=== PATIENT | male | born 1960 | race Two or more races ===

== ENCOUNTER → 2017-09-01 | Outpatient (REF) | payer OTHER ==
[2017-09-01 12:01] LABS: BASO % 0.7 % (0.0-1.0); EOS # 0.2 10^3/uL (0.0-0.50); EOS % 2.8 % (0.0-3.0); IMMATURE GRANULOCYTE % 0.4 % (0-0); LYMPH # 1.3 10^3/uL (1.5-4.5); LYMPH % 23.1 % (24.0-44.0); MEAN CORPUSCULAR HEMOGLOBIN 30.9 pg (27.0-33.0); MEAN CORPUSCULAR HGB CONC 33.6 g/dl (32.0-36.5); MEAN CORPUSCULAR VOLUME 92.2 fl (80.0-96.0); MONO # 0.4 10^3/uL (0.0-0.8); MONO % 7.3 % (0.0-5.0); NEUTROPHILS # 3.6 10^3/uL (1.8-7.7); NEUTROPHILS % 65.7 % (36.0-66.0); PLATELET COUNT, AUTOMATED 297 10^3/uL (150-450); RED CELL DISTRIBUTION WIDTH 12.8 % (11.5-14.5); WHITE BLOOD COUNT 5.5 10^3/uL (4.0-10.0)
[2017-09-01 12:49] LABS: ALBUMIN 4.4 GM/DL (3.2-5.2); ALBUMIN/GLOBULIN RATIO 1.52 (1.00-1.93); ALKALINE PHOSPHATASE 49 U/L (45-117); ALT/SGPT 33 U/L (12-78); ANION GAP 7 MEQ/L (8-16); AST/SGOT 19 U/L (7-37); BILIRUBIN,TOTAL 0.4 MG/DL (0.2-1.0); BLOOD UREA NITROGEN 22 MG/DL (7-18); CALCIUM LEVEL 9.4 MG/DL (8.5-10.1); CARBON DIOXIDE LEVEL 28 MEQ/L (21-32); CHLORIDE LEVEL 105 MEQ/L (98-107); CHOLESTEROL LEVEL 175 MG/DL (<200); CREATININE FOR GFR 0.96 MG/DL (0.70-1.30); FREE T4 0.82 NG/DL (0.76-1.46); GLOMERULAR FILTRATION RATE > 60.0 (>56); GLUCOSE, FASTING 93 MG/DL (70-105); SODIUM LEVEL 140 MEQ/L (136-145); TOTAL PROTEIN 7.3 GM/DL (6.4-8.2); TRIGLYCERIDES LEVEL 72 MG/DL (<150)
[2017-09-01 12:59] LABS: POTASSIUM SERUM 5.3 MEQ/L (3.5-5.1)
== END ==
LOC: M SFHCCLAY 08:50
PROVIDERS: ATTEND Nurse Practitioner Family
DX: R73.01 Impaired fasting glucose (principal); B19.10 Unspecified viral hepatitis B without hepatic coma; I48.91 Unspecified atrial fibrillation

== ENCOUNTER 2017-12-05 07:17 | Day surgery (SDC) | payer OTHER ==
[2017-12-05] MEDS: NS 1,000 ML IV (07:45)
[2017-12-05] MEDS ORDERED: PROPOFOL 200 MG/20 ML VIAL As Ordered ×2 (07:57→08:40)
[2017-12-05] MEDS ORDERED: LIDOCAINE 2% INJ 100 MG/5 ML SDV (FOR ANES.) As Ordered (07:59)
== END 2017-12-05 09:25 | disposition home or self-care (01) ==
LOC: M OPP 07:17
DX: Z12.11 Encounter for screening for malignant neoplasm of colon (principal); Z86.010 Personal history of colon polyps; K57.30 Diverticulosis of large intestine without perforation or abscess without bleeding; I48.91 Unspecified atrial fibrillation; K57.32 Diverticulitis of large intestine without perforation or abscess without bleeding; Z86.19 Personal history of other infectious and parasitic diseases; M51.9 Unspecified thoracic, thoracolumbar and lumbosacral intervertebral disc disorder; W57.XXXA Bitten or stung by nonvenomous insect and other nonvenomous arthropods, initial encounter; K21.9 Gastro-esophageal reflux disease without esophagitis; F17.290 Nicotine dependence, other tobacco product, uncomplicated; Z79.82 Long term (current) use of aspirin; Z79.899 Other long term (current) drug therapy
CPT/HCPCS: G0105

== ENCOUNTER → 2018-04-20 | Outpatient (REF) | payer OTHER ==
[2018-04-20 11:39] LABS: BASO % 0.4 % (0.0-1.0); EOS # 0.1 10^3/uL (0.0-0.50); HEMATOCRIT 45.9 % (42.0-52.0); HEMOGLOBIN 15.5 g/dl (13.5-17.5); IMMATURE GRANULOCYTE % 0.2 % (0-3.0); LYMPH # 1.2 10^3/uL (1.5-4.5); LYMPH % 21.9 % (24.0-44.0); MEAN CORPUSCULAR HEMOGLOBIN 31.3 pg (27.0-33.0); MEAN CORPUSCULAR HGB CONC 33.8 g/dl (32.0-36.5); MEAN CORPUSCULAR VOLUME 92.5 fl (80.0-96.0); MONO # 0.3 10^3/uL (0.0-0.8); MONO % 6.3 % (0.0-5.0); NEUTROPHILS # 3.7 10^3/uL (1.8-7.7); NEUTROPHILS % 69.2 % (36.0-66.0); PLATELET COUNT, AUTOMATED 295 10^3/uL (150-450); RED BLOOD COUNT 4.96 10^6/uL (4.30-6.10); RED CELL DISTRIBUTION WIDTH 13.1 % (11.5-14.5); WHITE BLOOD COUNT 5.4 10^3/uL (4.0-10.0)
[2018-04-20 12:05] LABS: ALBUMIN 4.1 GM/DL (3.2-5.2); ALBUMIN/GLOBULIN RATIO 1.24 (1.00-1.93); ALKALINE PHOSPHATASE 58 U/L (45-117); ALT/SGPT 31 U/L (12-78); ANION GAP 4 MEQ/L (8-16); AST/SGOT 18 U/L (7-37); BILIRUBIN,TOTAL 0.4 MG/DL (0.2-1.0); BLOOD UREA NITROGEN 18 MG/DL (7-18); CALCIUM LEVEL 9.2 MG/DL (8.5-10.1); CARBON DIOXIDE LEVEL 32 MEQ/L (21-32); CHLORIDE LEVEL 107 MEQ/L (98-107); CHOLESTEROL LEVEL 180 MG/DL (<200); CHOLESTEROL RISK RATIO 2.903 (<5); CREATININE FOR GFR 1.05 MG/DL (0.70-1.30); FREE T4 0.79 NG/DL (0.76-1.46); GLOMERULAR FILTRATION RATE > 60.0 (>56); GLUCOSE, FASTING 111 MG/DL (70-100); HDL CHOLESTEROL 62 MG/DL (>40); LDL CHOLESTEROL 109.4 MG/DL (<100); NON-HDL-C 118 MG/DL; POTASSIUM SERUM 5.1 MEQ/L (3.5-5.1); SODIUM LEVEL 143 MEQ/L (136-145); TOTAL PROTEIN 7.4 GM/DL (6.4-8.2); TRIGLYCERIDES LEVEL 43 MG/DL (<150)
[2018-04-20 12:28] LABS: ESTIMATED AVERAGE GLUCOSE 117 MG/DL (60-110); HEMOGLOBIN A1c 5.7 %
== END ==
LOC: M SFHCCLAY 08:32
DX: I48.91 Unspecified atrial fibrillation (principal); B19.10 Unspecified viral hepatitis B without hepatic coma; R73.01 Impaired fasting glucose
CPT/HCPCS: 84443

== ENCOUNTER → 2019-04-17 | Outpatient (REF) | payer OTHER ==
[~2019-04-17] MED LIST: ALEV220T26 PO; ASPI-255 PO; COQ-400C PO; D-3-50003 PO; DOXY100T PO; GLUC1CAP10 PO; MAGN400C2 PO; SALM10002 PO; TYLE500T78 PO; VITA10006 PO; [UNRECOGNIZED DRUG - CODE] PO
[2019-04-17 12:22] LABS: BASO % 0.4 % (0.0-1.0); EOS # 0.2 10^3/uL (0.0-0.50); EOS % 3.1 % (0.0-3.0); HEMATOCRIT 45.6 % (42.0-52.0); HEMOGLOBIN 15.4 g/dl (13.5-17.5); LYMPH # 1.3 10^3/uL (1.5-4.5); LYMPH % 25.7 % (24.0-44.0); MEAN CORPUSCULAR HEMOGLOBIN 31.8 pg (27.0-33.0); MEAN CORPUSCULAR HGB CONC 33.8 g/dl (32.0-36.5); MONO # 0.4 10^3/uL (0.0-0.8); MONO % 7.5 % (0.0-5.0); NEUTROPHILS # 3.2 10^3/uL (1.8-7.7); NEUTROPHILS % 63.1 % (36.0-66.0); PLATELET COUNT, AUTOMATED 266 10^3/uL (150-450); RED BLOOD COUNT 4.85 10^6/uL (4.30-6.10); WHITE BLOOD COUNT 5.1 10^3/uL (4.0-10.0)
[2019-04-17 12:42] LABS: HEMOGLOBIN A1c 5.6 %
[2019-04-17 13:04] LABS: ALBUMIN 3.9 GM/DL (3.2-5.2); ALT/SGPT 28 U/L (12-78); BILIRUBIN,TOTAL 0.5 MG/DL (0.2-1.0); BLOOD UREA NITROGEN 16 MG/DL (7-18); CALCIUM LEVEL 9.2 MG/DL (8.5-10.1); CARBON DIOXIDE LEVEL 29 MEQ/L (21-32); CHLORIDE LEVEL 108 MEQ/L (98-107); CHOLESTEROL LEVEL 179 MG/DL (<200); CHOLESTEROL RISK RATIO 2.934 (<5); CREATININE FOR GFR 1.09 MG/DL (0.70-1.30); FREE T4 0.83 NG/DL (0.76-1.46); GLOMERULAR FILTRATION RATE > 60.0 (>56); GLUCOSE, FASTING 111 MG/DL (70-100); HDL CHOLESTEROL 61 MG/DL (>40); LDL CHOLESTEROL 101 MG/DL (<100); NON-HDL-C 118 MG/DL; POTASSIUM SERUM 4.7 MEQ/L (3.5-5.1); SODIUM LEVEL 142 MEQ/L (136-145); TOTAL PROTEIN 6.8 GM/DL (6.4-8.2); TRIGLYCERIDES LEVEL 83 MG/DL (<150)
== END ==
LOC: M SFHCCLAY 08:30
PROVIDERS: ATTEND Nurse Practitioner Family
DX: R73.01 Impaired fasting glucose (principal); I48.91 Unspecified atrial fibrillation; B19.10 Unspecified viral hepatitis B without hepatic coma; I10 Essential (primary) hypertension; Z12.5 Encounter for screening for malignant neoplasm of prostate
CPT/HCPCS: 80053; 80061; 83036; 84439; 84443; 85025; G0103

== ENCOUNTER → 2019-11-19 | Outpatient (CLI) | payer OTHER ==
[~2019-11-19] MED LIST changes: +APAP500T10 PO; +VITA500079 PO; +[UNRECOGNIZED DRUG - CODE] PO
--- NOTE | 2019-11-19 17:15 | REP ---
RIGHT ELBOW, FOUR VIEWS: Four views of the right elbow performed. No acute fracture or dislocation is seen. A band of calcification is seen in distal triceps tendon or in the adjacent olecranon bursa. This measures 1.7 cm in length and approximately 3 mm in thickness. There is mild to moderate spurring of the olecranon, with a spur identified having a length of approximately 5 mm. There is soft tissue swelling adjacent to the olecranon in the region of the bandlike calcifications. IMPRESSION: Thick linear calcification with soft tissue swelling adjacent to the olecranon. This could represent olecranon bursitis or possibly calcific tendinitis of the triceps. There is olecranon spurring. Electronically Signed by Mau Callahan MD 11/20/2019 08:17 P
== END ==
LOC: M CLY 14:17
PROVIDERS: ATTEND Nurse Practitioner Family
DX: M25.521 Pain in right elbow (principal); M77.9 Enthesopathy, unspecified; M79.89 Other specified soft tissue disorders
CPT/HCPCS: 73080; G0463

== ENCOUNTER 2019-12-04 12:48 | Day surgery (SDC) | payer OTHER ==
[~2019-12-04] VITALS: Ht 185.4 cm; Wt 97.1 kg
[2019-12-04] MEDS: MIDAZOLAM INJ 2 MG/2 ML VIAL (J2250) IV SCH ×2 (12:14→12:16)
[~2019-12-04 12:48] MED LIST changes: +LR 1,000 ML IV ONE; +ceFAZolin SOD 2 GM in IV 1 EA IV ONE
[2019-12-04] MEDS ORDERED: ROPIvacaine 0.5% 30 ML INJECTION (J2795 PER 1MG) ONE (12:49)
[2019-12-04] MEDS ORDERED: dexameTHASONE 10 MG/1 ML VIAL PRES.FREE (J1100) ONE (12:49)
[2019-12-04] MEDS ORDERED: MIDAZOLAM INJ 2 MG/2 ML VIAL (J2250) As Ordered ONE ×2 (13:17→13:54)
[2019-12-04] MEDS ORDERED: fentaNYL 100 MCG/2 ML INJECTION (J3010) As Ordered ONE ×3 (13:17→15:20)
[2019-12-04] MEDS ORDERED: propofoL 200 MG/20 ML VIAL As Ordered ONE (13:17)
[2019-12-04] MEDS ORDERED: LIDOCAINE 2% INJ 100 MG/5 ML SDV (FOR ANES.) As Ordered ONE (13:17)
[2019-12-04] MEDS ORDERED: ROCURONIUM BROMIDE 50 MG/5 ML VIAL As Ordered ONE (13:28)
--- NOTE | 2019-12-04 14:14 | ECGEPIP ---
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
[2019-12-04] MEDS ORDERED: BUPIVACAINE/EPIN 0.25% 30 ML VIAL As Ordered ONE (14:19)
[2019-12-04] MEDS ORDERED: fentaNYL 100 MCG/2 ML INJECTION (J3010) IV ONE (14:45)
[2019-12-04] MEDS ORDERED: ACETAMINOPHEN 1000MG 100ML IV BTL (OFIRMEV) (J0131 PER 10MG) As Ordered ONE (15:16)
[2019-12-04] MEDS ORDERED: ONDANSETRON 4MG/2ML VIAL (J2405) As Ordered ONE (15:20)
[2019-12-04] MEDS ORDERED: dexameTHASONE 4 MG/ML 1ML VIAL (J1100) As Ordered ONE (15:20)
[2019-12-04] MEDS ORDERED: SUGAMMADEX SODIUM 500 MG/5 ML VIAL (BRIDION) As Ordered ONE (15:27)
[2019-12-04] MEDS ORDERED: GLYCOPYRROLATE INJ 0.2 MG/ML 2 ML VIAL As Ordered ONE (15:48)
[2019-12-04] MEDS ORDERED: oxyCODONE 5MG TAB As Ordered ONE (16:48)
[2019-12-04] MEDS: fentaNYL 100 MCG/2 ML INJECTION (J3010) IV PRN ×8 (16:50→17:30)
[2019-12-04] MEDS: oxyCODONE 5MG TAB PO PRN ×2 (16:50→17:20)
[2019-12-04] MEDS ORDERED: LR 1,000 ML IV SCH ×2 (17:00)
[2019-12-04] MEDS ORDERED: METOCLOPRAMIDE INJ 10MG/2ML VIAL (J2765) IV PRN (17:00)
[2019-12-04] MEDS ORDERED: ACETAMINOPHEN TAB 650MG DOSE (2X325MG) PO PRN (17:00)
[2019-12-04] MEDS ORDERED: PERCOCET 5MG/325MG TAB PO PRN (17:00)
[2019-12-04] MEDS ORDERED: MORPHINE 2 MG/ML 1ML VIAL (J2270) IV PRN (17:00)
[2019-12-04] MEDS ORDERED: ONDANSETRON 4MG/2ML VIAL (J2405) IV PRN ×2 (17:00)
--- NOTE | 2019-12-04 17:09 | RO ---
DATE OF PROCEDURE: 12/04/2019 PREOPERATIVE DIAGNOSIS: Right triceps tendon rupture. POSTOPERATIVE DIAGNOSIS: Right triceps tendon rupture. PLANNED PROCEDURE: Right triceps tendon repair. PROCEDURE PERFORMED: Right triceps tendon repair. SURGEON: Wilver Reid MD [employer] PROFESSOR: JUANITA Hearn BRANCH SERVICE ASSOCIATE: Dr. Ritchie. TYPE OF ANESTHETIC: General anesthetic plus block. 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 He sustained a triceps tendon rupture clinically as well as on MRI. We talked about the pros and cons, the risks and benefits of nonsurgical management versus repair. He wished to go ahead with surgery. I reiterated the risks in preoperative holding and marked the right upper extremity, and the patient had a block prior to proceeding to surgery. DESCRIPTION OF PROCEDURE: Patient was brought to the operating theater. He was administered general anesthetic. Two grams of IV Ancef was administered. He was placed right lateral decubitus with the aid of a beanbag positioner. Axillary roll was used as well as all bony prominences padded and sequential compression devices (SCDs) used. Limb was prepped and draped in the usual sterile fashion using a Western elbow positioner. Prep solution drying time over 3 minutes. Preoperative time-out was performed to confirm the site, the patient and surgery. We applied a sterile 18-inch tourniquet to the upper extremity. I bent the elbow with the Western elbow positioner at 90 degrees. I made a standard posterior working incision centered over the posterior aspect of the right elbow. I curved this around laterally. I carried dissection down through skin and subcutaneous tissue to meticulous hemostasis. Identified the triceps tendon rupture where there were a few fibers remaining intact. It was degenerative tendon. There was an area of calcification within the midsubstance of the tendon. Olecranon tip was freshened up to a bleeding surface of bone to create a bleeding bed for tendon healing. I then used a running Krackow locking stitch using #2 FiberWire suture on both sides of the tendon as well as incorporating the deep layer to create four suture tails. Then inserted a FiberLink Arthrex suture as well just proximal to the distal most sutures to have a loop coming out proximally. I then used a 2.5 mm drill to drill two bone tunnels. I placed the bone tunnels at the more proximal extent of the tendon insertion footprint as well as inserting the sutures on the undersurface to correspond to that place in the footprint. I drilled two bone tunnels. I passed three sutures from each side through each respective bone tunnel, including the FiberLink suture. I used one tail from each side to pass back up through the FiberLink and then pulled it through the opposite bone tunnel to create a SpeedBridge type repair construct. All the sutures were tensioned down with the elbow in full extension. I then selected a site for my of 4.75 Arthrex SwiveLock PEEK anchor. I drilled and tapped, as well as going in multiple times back and forth with a tap and drill and a punch to create appropriate depth of tunnel as the bone was quite hard in the proximal ulna. I then passed the sutures from each side in a crisscross fashion through the suture anchor eyelet, and then appropriately tensioned that down using a mallet. Tendon was fixed in appropriate amount of tension and full extension, and the anchor secured, screwed down into place. Suture anchor educational program director was then removed, and the sutures cut short. Tendon was taken through range of motion, at least 90 degrees; it was stable and solid, a good repair was achieved. The subcutaneous tissue was then irrigated using normal saline. Subcutaneous tissue was closed with #2-0 Vicryl sutures followed by running #3-0 Monocryl. Steri-Strips were applied after the wound was cleaned with a wet-and-dry dressing. 4 x 8 gauze as well as sterile cast padding was used to fashion above elbow three-sided plaster of Katie splint with the elbow in about 20 degrees of flexion. Tourniquet was taken down prior to the end of the case and hemostasis was achieved. The patient was transferred off the operating table, woken up from general anesthetic, and taken toe postanesthetic care unit in stable condition. All sponge, needle, and instrument counts were correct. ESTIMATED BLOOD LOSS: 20 mL. PLAN: The patient is to be discharged home according to day surgery criteria. Prescription has been sent to his pharmacy of choice. He will followup in the office in 2 weeks time.
[2019-12-04 19:25] VITALS: BP 137/73
== END 2019-12-04 19:25 | disposition home or self-care (01) ==
LOC: M SDC 12:48
PROVIDERS: ATTEND Orthopaedic Surgery Sports Medicine
DX: S46.311A Strain of muscle, fascia and tendon of triceps, right arm, initial encounter (principal); X50.0XXA Overexertion from strenuous movement or load, initial encounter; Y92.89 Other specified places as the place of occurrence of the external cause; Y93.B3 Activity, free weights; Z86.19 Personal history of other infectious and parasitic diseases; M51.9 Unspecified thoracic, thoracolumbar and lumbosacral intervertebral disc disorder; F43.10 Post-traumatic stress disorder, unspecified; Z86.79 Personal history of other diseases of the circulatory system; Z87.19 Personal history of other diseases of the digestive system; Z72.0 Tobacco use; Z79.899 Other long term (current) drug therapy; Z79.82 Long term (current) use of aspirin
CPT/HCPCS: 24342; 93005; C1713; J0131; J0690; J1100; J2250; J2405; J2795; J3010

== ENCOUNTER → 2020-08-26 | Outpatient (REF) | payer OTHER ==
[~2020-08-26] MED LIST changes: -LR 1,000 ML IV ONE; +VITA100065 PO; -[UNRECOGNIZED DRUG - CODE] PO; -ceFAZolin SOD 2 GM in IV 1 EA IV ONE
[2020-08-26 11:51] LABS: BASO % 0.6 % (0.0-1.0); EOS # 0.2 10^3/uL (0.0-0.5); EOS % 3.9 % (0.0-3.0); HEMATOCRIT 47.3 % (42.0-52.0); HEMOGLOBIN 15.1 g/dl (13.5-17.5); LYMPH # 1.3 10^3/uL (1.5-5.0); LYMPH % 24.9 % (24.0-44.0); MEAN CORPUSCULAR HEMOGLOBIN 29.7 pg (27.0-33.0); MEAN CORPUSCULAR HGB CONC 31.9 g/dl (32.0-36.5); MEAN CORPUSCULAR VOLUME 92.9 fl (80.0-96.0); MONO # 0.4 10^3/uL (0.0-0.8); MONO % 7.9 % (0.0-5.0); NEUTROPHILS # 3.2 10^3/uL (1.5-8.5); NEUTROPHILS % 62.5 % (36.0-66.0); PLATELET COUNT, AUTOMATED 299 10^3/uL (150-450); RED BLOOD COUNT 5.09 10^6/uL (4.30-6.10); WHITE BLOOD COUNT 5.2 10^3/uL (4.0-10.0)
[2020-08-26 12:11] LABS: HEMOGLOBIN A1c 5.6 %
[2020-08-26 12:34] LABS: ALBUMIN 4.1 GM/DL (3.2-5.2); ALT/SGPT 30 U/L (12-78); BILIRUBIN,TOTAL 0.6 MG/DL (0.2-1.0); BLOOD UREA NITROGEN 20 MG/DL (7-18); CALCIUM LEVEL 9.5 MG/DL (8.5-10.1); CARBON DIOXIDE LEVEL 30 MEQ/L (21-32); CHLORIDE LEVEL 106 MEQ/L (98-107); CHOLESTEROL LEVEL 197 MG/DL (<200); CHOLESTEROL RISK RATIO 3.177 (<5); CREATININE FOR GFR 0.99 MG/DL (0.70-1.30); FREE T4 0.86 NG/DL (0.76-1.46); GLOMERULAR FILTRATION RATE > 60.0 (>56); GLUCOSE, FASTING 104 MG/DL (70-100); HDL CHOLESTEROL 62 MG/DL (>40); LDL CHOLESTEROL 118 MG/DL (<100); NON-HDL-C 135 MG/DL; POTASSIUM SERUM 4.7 MEQ/L (3.5-5.1); SODIUM LEVEL 138 MEQ/L (136-145); TRIGLYCERIDES LEVEL 83 MG/DL (<150)
== END ==
LOC: M SFHCCLAY 08:16
PROVIDERS: ATTEND Nurse Practitioner Family
DX: Z00.00 Encounter for general adult medical examination without abnormal findings (principal); I10 Essential (primary) hypertension; I48.91 Unspecified atrial fibrillation; R73.01 Impaired fasting glucose
CPT/HCPCS: 80053; 80061; 83036; 84439; 84443; 85025; 90471; 90682; G0463